=== PATIENT | female | born 1990 | race Caucasian/White ===

== ENCOUNTER → 2016-12-05 | Outpatient (CLI) | payer SELFPAY ==
--- NOTE | 2016-12-05 16:37 | US ---
EXAMINATION: Transvaginal pelvic ultrasound HISTORY: Pain COMPARISON: 06/23/2015 TECHNIQUE: Grayscale, color Doppler, and spectral Doppler images obtained transvaginally. FINDINGS: The uterus appears normal in size, contour, and echogenicity. Endometrial stripe thickness measures 9 mm. There is a trace fluid within the lower uterine segment. Trace free pelvic fluid. The ovaries are normal in size demonstrating normal color and spectral Doppler flow. There are multi ple small follicles within the ovaries bilaterally within the peripheral distribution. No adnexal ma sses. IMPRESSION: 1. Multiple small peripheral follicles within the ovaries bilaterally, this could suggests PCOS. Cor relate clinically. 2. Otherwise grossly unremarkable pelvic ultrasound.
== END ==
LOC: MW.US 13:47
PROVIDERS: ATTEND Nurse Practitioner Women's Health
DX: R10.9 Unspecified abdominal pain (principal); R30.0 Dysuria
CPT/HCPCS: 76830; 76830-26

== ENCOUNTER 2017-09-25 21:09 | Emergency (ER) | payer BC ==
[2017-09-25] MEDS ORDERED: Alum Hydrox/Mag Hydrox/Simeth 15 ML, Metoclopramide 5 MG, Lidocaine 2% 5 ML PO ONE ×3 (21:15)
--- NOTE | 2017-09-25 21:21 | EDM.PDOC ---
ED HPI GENERAL MEDICAL PROBLEM - General Chief Complaint: Allergic Reaction Stated Complaint: PT HAVING ALLERGIC REACTION Time Seen by Provider: 09/25/17 21:22 Source of Information: Reports: Patient, Family History Limitations: Reports: No Limitations - History of Present Illness INITIAL COMMENTS - FREE TEXT/NARRATIVE: HISTORY AND PHYSICAL: []47-year-old female presenting with cough cold-like symptoms she's was given doxycycline and Cheratussin in the clinic yesterday History of Present Illness: []After taking her dose this evening she has experienced extreme burning sensation across her abdomen Patient states that she has the flu but was not tested She is not on Tamiflu as she "does not tolerate it well on her stomach" Review of Systems: As per history of present illness and below otherwise all systems reviewed and negative. Past medical history: As per history of present illness and as reviewed below otherwise noncontributory. Surgical history: As per history of present illness and as reviewed below otherwise noncontributory. Social history: No reported history of drug or alcohol abuse. Family history: As per history of present illness and as reviewed below otherwise noncontributory. Physical exam: Alert and oriented female who is answering questions appropriately speaking in full sentences without any shortness of breath. HEENT: Atraumatic, normocehpalic, pupils reactive, negative for conjunctival pallor or scleral icterus, mucous membranes moist, neck supple, nontender, trachea midline. Tympanic membranes without erythema or exudate throat non- erythematous Lungs: Clear to auscultation, breath sounds equal bilaterally, chest non tender. Heart: S1S2, regular, negative for clicks, rubs, or JVD. Abdomen: Soft, nondistended, nontender. Negative for masses or hepatossplenmegaly. Negative for costovertebral tenderness. Pelvis: Stable nontender. Genitourinary: Deferred. Rectal: Deferred Extremities: Atraumatic, negative for cords or calf pain. Neurovascular unremarkable. Neuro: Awake, alert, oriented. Cranial nerves II through XII unremarkable. Cerebellum unremarkable. Motor and sensory unremarkable throughout. Exam nonfocal. Patient noted relief after drinking the GI cocktail Diagnostics: [] Therapeutics: []GI cocktail Impression: [Gastritis] Plan: []Discharged to home Mylanta [id number] or similar product 4 times a day as needed Prescription of Aster Roach will be sent to her pharmacy [id number] medication such as Nexium and Prilosec discussed with her Follow-up with your primary care provider next week Definitive disposition and diagnosis as appropriate pending reevaluation and review of above. Onset: Today, Sudden Duration: Hour(s):, Getting Worse Location: Reports: Abdomen Quality: Reports: Burning Severity: Moderate Improves with: Reports: None Worsens with: Reports: None Associated Symptoms: Reports: Cough abdominal Pain Score (Numeric/FACES): 10 - Related Data Allergies Allergy/AdvReac Type Severity Reaction Status Date / Time No Known Allergies Allergy Verified 09/07/16 15:55 Home Meds: Home Meds Benzonatate [Tessalon Perle] 100 mg PO Q6HR PRN #40 capsule 09/25/17 [Rx] Past Medical History HEENT History: Reports: None Cardiovascular History: Reports: Other (See Below) Other Cardiovascular History: palpitations Respiratory History: Reports: None Gastrointestinal History: Reports: Bowel Obstruction, Chronic Constipation Genitourinary History: Reports: None [employer] History: Reports: Musculoskeletal History: Reports: None Neurological History: Reports: None Psychiatric History: Reports: None Endocrine/Metabolic History: Reports: Hyperthyroidism Other Endocrine/Metabolic History: No medications. Hematologic History: Reports: None Immunologic History: Reports: None Oncologic (Cancer) History: Reports: None Dermatologic History: Reports: None - Infectious Disease History Infectious Disease History: Reports: Chicken Pox - Past Surgical History GI Surgical History: Reports: Other (See Below) Female Surgical History: Reports: Section Social & Family History - Family History Family Medical History: Noncontributory - Tobacco Use Smoking Status *Q: Current Every Day Smoker Years of Tobacco use: 14 Packs/Tins Daily: 0.5 Second Hand Smoke Exposure: Yes - Caffeine Use Caffeine Use: Reports: None - Recreational Drug Use Recreational Drug Use: No ED ROS ALLERGIC REACTION - Review of Systems Review Of Systems: ROS reveals no pertinent complaints other than HPI. ED EXAM GENERAL NO PERIP PULSE - Physical Exam Exam: See Below Course - Vital Signs Last Recorded V/S: Last Vital Signs Temp 37.7 C 09/25/17 21:22 Pulse 102 H 09/25/17 21:22 Resp 20 09/25/17 21:22 BP 128/71 09/25/17 21:22 Pulse Ox 96 09/25/17 21:22 - Orders/Labs/Meds Meds: Medications Discontinued Medications Generic Name Dose Route Start Last Admin Trade Name Freq PRN Reason Stop Dose Admin Al Hydroxide/Mg Hydroxide 15 0 ml 09/25/17 21:15 09/25/17 21:28 ml/ Metoclopramide HCl 5 mg/ PO 09/25/17 21:16 25 each Lidocaine HCl 5 ml ONETIME ONE Administration Departure - Departure Time of Disposition: 21:37 Disposition: Home, Self-Care 01 Condition: Good Clinical Impression: Gastritis Qualifiers: Gastritis type: unspecified gastritis Chronicity: acute Gastritis bleeding: without bleeding Qualified Code(s): K29.00 - Acute gastritis without bleeding - Discharge Information Prescriptions: Benzonatate [Tessalon Perle] 100 mg PO Q6HR PRN #40 capsule PRN Reason: Cough Additional Instructions: The following information is given to patients seen in the emergency department who are being discharged to home. This information is to outline your options for follow-up care. We provide all patients seen in our emergency department with a follow-up referral. The need for follow-up, as well as the timing and circumstances, are variable depending upon the specifics of your emergency department visit. If you don't have a primary care physician on staff, we will provide you with a referral. We always advise you to contact your personal physician following an emergency department visit to inform them of the circumstance of the visit and for follow-up with them and/or the need for any referrals to a consulting specialist. The emergency department will also refer you to a specialist when appropriate. This referral assures that you have the opportunity for followup care with a specialist. All of these measure are taken in an effort to provide you with optimal care, which includes your followup. Under all circumstances we always encourage you to contact your private physician who remains a resource for coordinating your care. When calling for followup care, please make the office aware that this follow-up is from your recent emergency room visit. If for any reason you are refused follow-up, please contact the [facility] emergency department at and asked to speak to the emergency department charge nurse. Follow-up with your provider in next week You have been found to have gastritis while in the ER [id number] Mylanta Riopan or Gaviscon may be quite helpful to take 4 times a day Tums is available but less likely to be beneficial Zantac be taken twice daily Nexium can be taken daily or prilosec
[2017-09-25 22:11] VITALS: BP 111/78
== END 2017-09-25 22:16 | disposition home or self-care (01) ==
LOC: MW.ED 21:09
DX: K29.00 Acute gastritis without bleeding (principal); F17.210 Nicotine dependence, cigarettes, uncomplicated
CPT/HCPCS: 99284; A9270; 99283

== ENCOUNTER 2021-08-02 13:13 | Emergency (ER) | payer BC ==
--- NOTE | 2021-08-02 13:35 | EDM.PDOC ---
ED HPI GENERAL MEDICAL PROBLEM - General Chief Complaint: Syncope Stated Complaint: UNKOWN Time Seen by Provider: 08/02/21 13:15 Source of Information: Reports: Patient History Limitations: Reports: No Limitations - History of Present Illness INITIAL COMMENTS - FREE TEXT/NARRATIVE: Patient is a 31-year-old female who was brought over from the dermatology clinic after syncope episode. Patient was having a few moles removed which started feeling lightheaded. States she sat down she felt she was in a pass out. Patient has had this before in the past states that she was told she had a vasovagal syndrome. She denies any chest pain she currently feels back to her baseline and has no medical complaints at this time. 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 Hematologic History: Reports: None Immunologic History: Reports: None Oncologic (Cancer) History: Reports: None Dermatologic History: Reports: None - Infectious Disease History Infectious Disease History: Reports: Chicken Pox - Past Surgical History GI Surgical History: Reports: Other (See Below) Female Surgical History: Reports: Section Social & Family History - Family History Family Medical History: No Pertinent Family History - Caffeine Use Caffeine Use: Reports: None ED ROS GENERAL - Review of Systems Review Of Systems: See Below Constitutional: Reports: No Symptoms HEENT: Reports: No Symptoms Respiratory: Reports: No Symptoms Cardiovascular: Reports: Syncope Endocrine: Reports: No Symptoms GI/Abdominal: Reports: No Symptoms : Reports: No Symptoms Musculoskeletal: Reports: No Symptoms Skin: Reports: No Symptoms Neurological: Reports: No Symptoms Psychiatric: Reports: No Symptoms Hematologic/Lymphatic: Reports: No Symptoms Immunologic: Reports: No Symptoms - Physical Exam Exam: See Below Exam Limited By: No Limitations General Appearance: Alert, WD/WN, No Apparent Distress Eye Exam: Bilateral Eye: EOMI, PERRL Head Exam: Atraumatic, Normocephalic Respiratory/Chest: No Respiratory Distress, Lungs Clear, Normal Breath Sounds Cardiovascular: Normal Peripheral Pulses, Regular Rate, Rhythm GI/Abdominal: Normal Bowel Sounds, Soft, Non-Tender Neuro Exam (Abbreviated): Alert, Oriented, Normal Cognition, Normal Gait Extremities: Normal Inspection, Normal Range of Motion #1 Interpretation EKG Date: 08/02/21 Time: 13:19 Rhythm: NSR Rate (Beats/Min): 72 ST-T: Normal Course - Vital Signs Last Recorded V/S: Last Vital Signs Temp 97.7 F 08/02/21 13:29 Pulse 73 08/02/21 15:32 Resp 16 08/02/21 15:32 BP 109/68 08/02/21 15:32 Pulse Ox 98 08/02/21 15:32 - Orders/Labs/Meds Orders: Active Orders 24 hr Category Date Time Status HCG QUALITATIVE,URINE [URCHEM] Stat Lab 08/02/21 14:57 Received Labs: Laboratory Tests 08/02/21 08/02/21 Range/Units 13:55 13:55 WBC 10.72 (4.0-11.0) K/uL RBC 4.58 (4.30-5.90) M/uL Hgb 13.1 (12.0-16.0) g/dL Hct 39.1 (36.0-46.0) % MCV 85.4 (80.0-98.0) fL MCH 28.6 (27.0-32.0) pg MCHC 33.5 (31.0-37.0) g/dL RDW Std Deviation 39.6 (28.0-62.0) fl RDW Coeff of Elsi 13 (11.0-15.0) % Plt Count 295 (150-400) K/uL MPV 10.20 (7.40-12.00) fL Neut % (Auto) 73.9 (48.0-80.0) % Lymph % (Auto) 19.8 (16.0-40.0) % [place] % (Auto) 4.7 (0.0-15.0) % Eos % (Auto) 1.2 (0.0-7.0) % Baso % (Auto) 0.4 (0.0-1.5) % Neut # (Auto) 7.9 H (1.4-5.7) K/uL Lymph # (Auto) 2.1 (0.6-2.4) K/uL [place] # (Auto) 0.5 (0.0-0.8) K/uL Eos # (Auto) 0.1 (0.0-0.7) K/uL Baso # (Auto) 0.0 (0.0-0.1) K/uL Nucleated RBC % 0.0 /100WBC Nucleated RBCs # 0 K/uL Sodium 140 (136-145) mmol/L Potassium 3.9 (3.5-5.1) mmol/L Chloride 102 (98-107) mmol/L Carbon Dioxide 24.9 (21.0-32.0) mmol/L BUN 14 (7.0-18.0) mg/dL Creatinine 0.9 (0.6-1.0) mg/dL Est Cr Clr Drug Dosing 74.92 mL/min Estimated GFR (MDRD) > 60.0 ml/min Glucose 107 H (74-106) mg/dL Calcium 9.1 (8.5-10.1) mg/dL Total Bilirubin 0.2 (0.2-1.0) mg/dL AST 17 (15-37) IU/L ALT 30 (14-63) IU/L Alkaline Phosphatase 76 (46-116) U/L Troponin I < 0.050 (0.000-0.056) ng/mL Total Protein 8.0 (6.4-8.2) g/dL Albumin 3.6 (3.4-5.0) g/dL Globulin 4.4 H (2.6-4.0) g/dL Albumin/Globulin Ratio 0.8 L (0.9-1.6) - Re-Assessments/Exams Free Text/Narrative Re-Assessment/Exam: 08/02/21 16:00 Patient EKG labs reviewed. Patient had this before in the past has had multiple work-ups. She is already seen cardiology for and cannot figure out why she has his episodes. We will refer patient cardiology again and also her PMD. Departure - Departure Time of Disposition: 16:00 Disposition: Home, Self-Care 01 Condition: Good Clinical Impression: Syncope - Discharge Information *PRESCRIPTION DRUG MONITORING PROGRAM REVIEWED*: Not Applicable *COPY OF PRESCRIPTION DRUG MONITORING REPORT IN PATIENT HITESH: Not Applicable Instructions: Syncope, [id number] Forms: ED Department Discharge Additional Instructions: You were seen today for a syncope episode. You said you had this before in the past and had a work-up cannot find out what was definitely causing it. We will also [facility] cardiology recommend you call to possible follow-up. If you have any other concerning signs or symptoms please refer to return to the ED. The following information is given to patients seen in the emergency department who are being discharged to home. This information is to outline your options for follow-up care. We provide all patients seen in our emergency department with a follow-up referral. The need for follow-up, as well as the timing and circumstances, are variable depending upon the specifics of your emergency department visit. If you don't have a primary care physician on staff, we will provide you with a referral. We always advise you to contact your personal physician following an emergency department visit to inform them of the circumstance of the visit and for follow-up with them and/or the need for any referrals to a consulting spec ialist. The emergency department will also refer you to a specialist when appropriate. This referral assures that you have the opportunity for follow-up care with a specialist. All of these measure are taken in an effort to provide you with optimal care, which includes your follow-up. Under all circumstances we always encourage you to contact your private physician who remains a resource for coordinating your care. When calling for follow-up care, please make the office aware that this follow-up is from your recent emergency room visit. If for any reason you are refused follow-up, please contact the [facility] Emergency Department at and asked to speak to the emergency department charge nurse. Please follow up with your primary care physician. If you do not have a primary care physician, see below: Cardiac Rehabilitation at [address] [address] Sepsis Event Note (ED) - Focused Exam Vital Signs: Vital Signs Temp Pulse Resp BP Pulse Ox 08/02/21 15:32 73 16 109/68 98 08/02/21 14:36 80 122/67 97 08/02/21 13:29 97.7 F 63 16 116/68 99 - My Orders Last 24 Hours: My Active Orders 08/02/21 14:57 HCG QUALITATIVE,URINE [URCHEM] Stat - Assessment/Plan Last 24 Hours: My Active Orders 08/02/21 14:57 HCG QUALITATIVE,URINE [URCHEM] Stat Plan: Patient is a 31-year-old female brought in the rapid response at the syncope episode at the dermatology clinic. Patient may be a sinus rhythm she has no complaints or now denies any chest pain before the episode. Will obtain labs EKG x-ray and reassess.
[2021-08-02 14:31] LABS: BLOOD UREA NITROGEN,BUN 14 mg/dL (7.0-18.0); CARBON DIOXIDE,CO2 24.9 mmol/L (21.0-32.0); CHLORIDE,CL 102 mmol/L (98-107); GLUCOSE RANDOM 107 mg/dL (74-106); POTASSIUM,K 3.9 mmol/L (3.5-5.1); SODIUM,NA 140 mmol/L (136-145)
--- NOTE | 2021-08-02 15:39 | CR ---
INDICATION: SYNCOPE TECHNIQUE: Chest 1 view. COMPARISON: 04/28/18 FINDINGS: Cardiovascular and mediastinum: Heart size and vasculature are normal in caliber and appearance. Mediastinum is within normal limits. Lungs and pleural space: Lungs are clear. No sign of infiltrate or mass. No sign of pleural effusion. No pneumothorax. Bones and soft tissues: No significant findings. IMPRESSION: Unremarkable chest. Dictated by: Robert Latham MD @ 08/02/2021 15:38:07 (Electronically Signed)
[2021-08-02 16:06] VITALS: BP 106/70; PULSE 80
== END 2021-08-02 16:08 | disposition home or self-care (01) ==
LOC: MW.ED 13:13
DX: R55 Syncope and collapse (principal); Z88.5 Allergy status to narcotic agent
CPT/HCPCS: 36415; 71045; 71045-26; 80053; 81025; 84484; 85025; 93005; 99284-25

== ENCOUNTER 2021-09-02 16:10 | Emergency (ER) | payer BC ==
[2021-09-02 17:07] LABS: CORONAVIRUS COVID-19 NAA POSITIVE (NEGATIVE); INFLUENZA A NAA NEGATIVE (NEGATIVE); INFLUENZA B NAA NEGATIVE (NEGATIVE)
--- NOTE | 2021-09-02 17:33 | EDM.PDOC ---
ED HPI GENERAL MEDICAL PROBLEM - General Chief Complaint: Respiratory Problem Stated Complaint: POSSIBLE PNEUMONIA, FEVER, LOWER BACK PAIN Time Seen by Provider: 09/02/21 17:32 Source of Information: Reports: Patient History Limitations: Reports: No Limitations - History of Present Illness INITIAL COMMENTS - FREE TEXT/NARRATIVE: HISTORY AND PHYSICAL: History of present illness: Patient is a 31-year-old female who presents to the emergency room with complaints of productive cough. She has had a mild cough that has been fluctuating in severity and mucus production over the past 4 to 5 weeks. She states it has been most bothersome over the past 4 to 5 days, associated with body aches and fever. Patient denies any headache, change in vision, syncope or near syncope. Denies any chest pain, abdominal pain, nausea, vomiting, diarrhea, constipation or dysuria. Has not noted any blood in urine or stool. No concern of . Patient has been eating and drinking appropriately. No recent travel or sick contacts. Review of systems: As per history of present illness and below otherwise all systems reviewed and negative. Past medical history: As per history of present illness and as reviewed below otherwise noncontributory. Surgical history: As per history of present illness and as reviewed below otherwise noncontributory. Social history: See social history for further information Family history: As per history of present illness and as reviewed below otherwise noncontributory. Physical exam: General: Well developed and well nourished 31-year-old female. Alert and orientated x 3. Nontoxic in appearance and in no acute distress. Vital signs are stable and have been reviewed by me. Nursing notes were reviewed. HEENT: Atraumatic, normocephalic, pupils equal and reactive bilaterally, negative for conjunctival pallor or scleral icterus, mucous membranes moist, TMs normal bilaterally, throat clear, neck supple, nontender, trachea midline. No drooling or trismus noted. No meningeal signs. No hot potato voice noted. Lungs: Diminished with fine expiratory wheezing of bases to auscultation bilaterally. No rales or rhonchi. Chest nontender. Normal work of breathing, no accessory muscles used. Heart: S1S2, regular rate and rhythm without overt murmur, gallops, or rubs. No JVD. No peripheral edema Abdomen: Soft, nondistended, nontender. Normoactive bowel sounds. Negative for masses or costovertebral tenderness. Skin: Intact, warm, dry. No lesions or rashes noted. Hematologic: No petechiae or purpra. Mucosa appropriate color and normal nail be d color and refill. Extremities: Atraumatic, moves all extremities per self without difficulty or deficits, negative for cords or calf pain. Neurovascular unremarkable. Neuro: Awake, alert, oriented. Cranial nerves II through XII unremarkable. Cerebellum unremarkable. Motor and sensory unremarkable throughout. Exam nonfocal. Psychiatric: Mood and affect are appropriate. Normal thought process. Answering questions appropriately. Please note that the patient was seen and evaluated during the 2019 SARS-CoV-2 novel coronavirus pandemic period. Community viral transmission is ongoing at time of this encounter and the emergency department is operating under pandemic response procedures. Medical Decision Making: Patient is a 31-year-old female who presents to the emergency room with complaints of a cough that has been intermittent over the past 4 to 5 weeks. She states over the past 4 to 5 days the cough has become more productive, she has had generalized body aches, worse in her back and fever. Physical exam is unremarkable with the exception of fine expiratory wheezing to bases bilaterally and otherwise slightly diminished. We will obtain a chest x-ray and COVID/influenza testing. Patient is positive for COVID-19. I have talked with the patient about today's findings, in addition to providing specific details for plan of care. Reassessment at the time of disposition demonstrates that the patient is in no acute distress. The patient is stable for discharge, counseling was provided and we discussed in great detail signs and symptoms that would prompt them to return to the Emergency Department. Medication, follow up and supportive care measures were reviewed and discussed. Voices understanding and is agreeable to plan of care. Denies any further questions or concerns at this time. Diagnostics: CXR, COVID/Influenza Therapeutics: Albuterol with spacer, prednisone, Tessalon Prescription: Tessalone and Prednisone Impression: COVID-19 Plan: 1. You were evaluated today on an emergent basis. Your COVID-19 screening is positive. That means you do have the coronavirus and you are considered contagious. Your vital signs and oxygen saturation are well enough that you were able to monitor your symptoms at home. Continue to monitor for trouble breathing, new confusion or inability to arouse, bluish lips or face or any of the other symptoms we discussed -if this occurs please return to the emergency room immediately. 2. Please self quarantine until cleared by [facility]. Inform any persons that you have been in contact with since you started becoming symptomatic that you have tested positive; they should be made aware and take the appropriate steps as needed. 3. You can take NyQuil during the evening to help get a restful night sleep. May alternate Tylenol and ibuprofen as needed for pain and fever management. 4. The [facility] department will be calling you and following up with you. The [email or web address] Hotline phone number , They are open Friday - Friday 7am - 7pm. Follow up with your primary care provider for re-evaluation as directed. Definitive disposition and diagnosis as appropriate pending reevaluation and review of above. Back Pain Score (Numeric/FACES): 7 - Related Data Allergies Allergy/AdvReac Type Severity Reaction Status Date / Time codeine Allergy Stomach Verified 09/02/21 16:29 Upset nitrous oxide Allergy Shortness Verified 09/02/21 16:29 of Breath Home Meds: Home Meds . [No Known Home Meds] 09/02/21 [History] Past Medical History HEENT History: Reports: None Cardiovascular History: Reports: Other (See Below) Other Cardiovascular History: palpitations Respiratory History: Reports: None Gastrointestinal History: Reports: Bowel Obstruction, Chronic Constipation Genitourinary History: Reports: None [employer] DEVELOPMENT History: Reports: Musculoskeletal History: Reports: None Neurological History: Reports: None Psychiatric History: Reports: Anxiety, Depression Endocrine/Metabolic History: Reports: Hyperthyroidism Other Endocrine/Metabolic History: No medications. Hematologic History: Reports: None Immunologic History: Reports: None Oncologic (Cancer) History: Reports: None Dermatologic History: Reports: None - Infectious Disease History Infectious Disease History: Reports: Chicken Pox - Past Surgical History Head Surgeries/Procedures: Reports: None GI Surgical History: Reports: Other (See Below) Other GI Surgeries/Procedures: Per pt, "When I had my they got some of the intestines sewn back with my abdomen." Female Surgical History: Reports: Section Social & Family History - Family History Family Medical History: No Pertinent Family History - Tobacco Use Second Hand Smoke Exposure: No - Caffeine Use Caffeine Use: Reports: None - Recreational Drug Use Recreational Drug Use: No ED ROS GENERAL - Review of Systems Review Of Systems: Comprehensive ROS is negative, except as noted in HPI. ED EXAM, GENERAL - Physical Exam Exam: See Below (See dictation) Course - Vital Signs Last Recorded V/S: Last Vital Signs Temp 98.4 F 09/02/21 16:27 Pulse 88 09/02/21 16:27 Resp 20 09/02/21 16:27 BP 123/75 09/02/21 16:27 Pulse Ox 98 09/02/21 16:27 - Orders/Labs/Meds Orders: Active Orders 24 hr Category Date Time Status RT Post Treatment Assessment [RC] Click to Edit Care 09/02/21 17:48 Active RT Pre-Treatment Assessment [RC] Click to Edit Care 09/02/21 17:48 Active Chest 1V Frontal [CR] Stat Exams 09/02/21 16:17 Taken Labs: Laboratory Tests 09/02/21 Range/Units 16:20 Influenza Type A RNA NEGATIVE (NEGATIVE) Influenza Type B RNA NEGATIVE (NEGATIVE) SARS-CoV-2 RNA (SRINIVASA) POSITIVE H (NEGATIVE) Meds: Medications Discontinued Medications Generic Name Dose Route Start Last Admin Trade Name Stefany PRN Reason Stop Dose Admin Albuterol 1 gm 09/02/21 17:48 Albuterol 8 Gm Inhaler INH 09/02/21 17:49 ONETIME ONE Benzonatate 200 mg 09/02/21 17:52 Benzonatate 100 Mg Cap PO 09/02/21 17:53 ONETIME ONE Prednisone 40 mg 09/02/21 17:51 Prednisone 20 Mg Tab PO 09/02/21 17:52 ONETIME ONE Departure - Departure Time of Disposition: 17:49 Disposition: Home, Self-Care 01 Clinical Impression: COVID-19 - Discharge Information Instructions: 10 Things You Can Do to Manage Your COVID-19 Symptoms at Home - CDC (03/09/2021) Forms: ED Department Discharge Additional Instructions: The following information is given to patients seen in the emergency department who are being discharged to home. This information is to outline your options for follow-up care. We provide all patients seen in our emergency department with a follow-up referral. The need for follow-up, as well as the timing and circumstances, are variable depending upon the specifics of your emergency department visit. If you don't have a primary care physician on staff, we will provide you with a referral. We always advise you to contact your personal physician following an emergency department visit to inform them of the circumstance of the visit and for follow-up with them and/or the need for any referrals to a consulting specialist. The emergency department will also refer you to a specialist when appropriate. This referral assures that you have the opportunity for follow-up care with a specialist. All of these measure are taken in an effort to provide you with optimal care, which includes your follow-up. Under all circumstances we always encourage you to contact your private physician who remains a resource for coordinating your care. When calling for follow-up care, please make the office aware that this follow-up is from your recent emergency room visit. If for any reason you are refused follow-up, please contact the [facility] at and asked to speak to the emergency department charge nurse. [facility] [address] [place] [address] [id number] [facility] [address] [place] [id number] Thank you for choosing the [facility] emergency department in [place] for your medical needs today. It was a pleasure caring for you. Today you were seen in the emergency department for cough. Pharmacy: [facility] Meds: Prednisone, steroid. Take once daily x4 days. First dose was given in the emergency room. You can use Tessalon Perles up to 3 times daily as needed for cough. 1. You were evaluated today on an emergent basis. Your COVID-19 screening is positive. That means you do have the coronavirus and you are considered contagious. Your vital signs and oxygen saturation are well enough that you were able to monitor your symptoms at home. Continue to monitor for trouble breathing, new confusion or inability to arouse, bluish lips or face or any of the other symptoms we discussed -if this occurs please return to the emergency room immediately. 2. Please self quarantine until cleared by [facility]. Inform any persons that you have been in contact with since you started becoming symptomatic that you have tested positive; they should be made aware and take the appropriate steps as needed. 3. You can take NyQuil during the evening to help get a restful night sleep. May alternate Tylenol and ibuprofen as needed for pain and fever management. 4. The [facility] department will be calling you and following up with you. The [place] [employer] Hotline phone number , They are open Friday - Friday 7am - 7pm. Follow up with your primary care provider for re-evaluation as directed. Sepsis Event Note (ED) - Evaluation Sepsis Screening Result: No Definite Risk - Focused Exam Vital Signs: Vital Signs Temp Pulse Resp BP Pulse Ox 09/02/21 16:27 98.4 F 88 20 123/75 98 - My Orders Last 24 Hours: My Active Orders 09/02/21 16:17 Chest 1V Frontal [CR] Stat 09/02/21 17:48 RT Post Treatment Assessment [RC] Click to Edit RT Pre-Treatment Assessment [RC] Click to Edit - Assessment/Plan Last 24 Hours: My Active Orders 09/02/21 16:17 Chest 1V Frontal [CR] Stat 09/02/21 17:48 RT Post Treatment Assessment [RC] Click to Edit RT Pre-Treatment Assessment [RC] Click to Edit
[2021-09-02] MEDS ORDERED: Albuterol 8 GM Inhaler INH ONE (17:48)
[2021-09-02] MEDS ORDERED: predniSONE 20 MG Tab PO ONE (17:51)
[2021-09-02] MEDS ORDERED: Benzonatate 100 MG Cap PO ONE (17:52)
--- NOTE | 2021-09-02 18:14 | CR ---
INDICATION: Cough, COVID positive TECHNIQUE: Chest 1 view. COMPARISON: Chest x-ray 08/02/2021 FINDINGS: The heart is normal in size. The pulmonary vasculature is within normal limits. The lungs are clear. The bones are unremarkable. IMPRESSION: No acute process. Dictated by Martita Hickman MD @ 09/02/2021 6:13:12 PM (Electronically Signed)
[2021-09-02 18:28] VITALS: BP 128/74; PULSE 87
== END 2021-09-02 18:28 | disposition home or self-care (01) ==
LOC: MW.ED 16:10
DX: U07.1 COVID-19 (principal); Z88.5 Allergy status to narcotic agent; Z91.048 Other nonmedicinal substance allergy status
CPT/HCPCS: 0240U; 71045; 99283; A9270